=== PATIENT | female | born 1950 | race Caucasian/White ===

== ENCOUNTER 2016-10-19 10:10 | Outpatient (CLI) | payer OTHER ==
--- NOTE | 2016-10-19 11:36 | DIAGNOSTIC IMAGING REPORT ---
PROCEDURE: DEXA BONE DENSITY STUDY CLINICAL INDICATION: SCREENING COMPARISON: DEXA dated 11/23/2013 FINDINGS: LUMBAR SPINE: Bone mineral density 0.871 g/cm2, T score -1.6 osteopenia which represents a 9.4% improvement since the previous study LEFT HIP: Bone mineral density 0.852 g/cm2, T score -0.7 normal which represents a 10.7% improvement since the previous study LEFT FEMORAL NECK: Bone mineral density 0.711 g/cm2, T score -1.2 osteopenia which represents a 4.2% improvement since the previous study FRACTURE RISK CALCULATION ( when applicable): 10-year fracture risk of a major osteoporotic fracture and of a hip fracture is increased. (T score greater or equal to -1.0 to: NORMAL) (T score from -1.1 to -2.4: OSTEOPENIA) (T score ess than or equal to -2.5: OSTEOPOROSIS) IMPRESSION: 1. Normal hip. Femoral neck and lumbar spine osteopenia with respective 4.2% and 9.4% improvement in bone mineral density from the previous study.
== END 2016-10-19 23:00 ==
LOC: MAM SRH 10:10
DX: M85.89 Other specified disorders of bone density and structure, multiple sites (principal)

== ENCOUNTER 2016-10-22 08:21 | Outpatient (CLI) | payer OTHER ==
--- NOTE | 2016-10-22 11:22 | DIAGNOSTIC IMAGING REPORT ---
PROCEDURE: MG BILATERAL SCREENING W/CAD INDICATION: Screening. History of left breast carcinoma (lumpectomy and radiation 2012). Family history breast carcinoma (maternal aunt). TECHNIQUE: Bilateral CC and MLO digital views. COMPARISON: Compared to 10/20/2015, 10/22/2014, and 04/21/2014. FINDINGS: Computer-aided detection applied. Moderately dense parenchymal pattern. There are stable postoperative and postradiation changes in the upper inner left breast (surgical clips and parenchymal scarring). No change. IMPRESSION: 1. Stable postoperative and postradiation changes of the left breast. 2. Negative mammogram. RESULT CODE: 2- Benign finding(s). A. A negative report should not delay biopsy if a dominant or clinically suspicious mass is present. 10-15% of cancers are not identified by x-ray. B. A negative report may reinforce clinical impression. C. Adenosis and dense breasts may obscure an underlying neoplasm. D. False positive reports average 6-10%. E.. A yearly screening mammogram is recommended. A reminder letter will be scheduled.
== END 2016-10-22 23:00 ==
LOC: MAM SRH 08:21
DX: Z12.31 Encounter for screening mammogram for malignant neoplasm of breast (principal); Z85.3 Personal history of malignant neoplasm of breast; Z80.3 Family history of malignant neoplasm of breast; Z92.3 Personal history of irradiation; Z98.890 Other specified postprocedural states